=== PATIENT | female | born 1955 | race Two or more races ===

== ENCOUNTER 2017-06-03 09:30 | Inpatient (IN) | payer OTHER ==
[~2017-06-03] VITALS: Ht 152.4 cm; Wt 49.0 kg
[2017-06-03] MEDS ORDERED: [UNRECOGNIZED DRUG - OTHER] PO (11:19)
== END 2017-06-08 14:19 | disposition home or self-care (01) | DRG 583 ==
LOC: O/R 06-07 06:33 → SURH 06-07 07:00 → SURG 06-07 15:47
PROVIDERS: Plastic Surgery; Surgery
PROC: 0HHT0NZ Insertion of Tissue Expander into Right Breast, Open Approach (ICD-10-PCS; 2017-06-07)
PROC: BW28Y0Z Computerized Tomography (CT Scan) of Head using Other Contrast, Unenhanced and Enhanced (ICD-10-PCS; 2017-06-07)
PROC: 0HTT0ZZ Resection of Right Breast, Open Approach (ICD-10-PCS; principal; 2017-06-07 07:00)
PROC: 07T50ZZ Resection of Right Axillary Lymphatic, Open Approach (ICD-10-PCS; 2017-06-07 07:00)
DX: C50.411 Malignant neoplasm of upper-outer quadrant of right female breast (principal); Z90.11 Acquired absence of right breast and nipple

== ENCOUNTER 2019-05-29 11:33 | Outpatient (CLI) | payer OTHER ==
[~2019-05-29 11:33] MED LIST: [UNRECOGNIZED DRUG - OTHER] PO
== END 2019-05-29 11:48 | disposition home or self-care (01) ==
LOC: NUCLEAR 11:33
DX: I82.621 Acute embolism and thrombosis of deep veins of right upper extremity (principal)

== ENCOUNTER 2019-06-02 14:59 | Outpatient (CLI) | payer OTHER | END 2019-06-02 15:08 | disposition home or self-care (01) | LOC: SONOGRAMA 14:59 | DX: R22.31 Localized swelling, mass and lump, right upper limb (principal); R22.32 Localized swelling, mass and lump, left upper limb; I82.621 Acute embolism and thrombosis of deep veins of right upper extremity ==

== ENCOUNTER → 2019-06-22 | Day surgery (SDC) | payer OTHER ==
[~2019-06-22] MED LIST changes: +FASLODEX250 MG/5 M IM
== END | disposition home or self-care (01) ==
LOC: ADM 06-19 08:30 → CIR.AMB 08:30
PROVIDERS: Plastic Surgery
PROC: 0HRT0JZ Replacement of Right Breast with Synthetic Substitute, Open Approach (ICD-10-PCS; 2019-06-22)
PROC: 0H0T0JZ Alteration of Right Breast with Synthetic Substitute, Open Approach (ICD-10-PCS; 2019-06-22)
PROC: 0HPT0JZ Removal of Synthetic Substitute from Right Breast, Open Approach (ICD-10-PCS; principal; 2019-06-22 09:45)
DX: N65.1 Disproportion of reconstructed breast (principal); Z90.11 Acquired absence of right breast and nipple
CPT/HCPCS: 19330; 19342; 19366; C1789